=== PATIENT | male | born 1955 | race Caucasian/White ===

== ENCOUNTER 2021-09-17 13:11 | Outpatient (CLI) | payer BC ==
[2021-09-18 00:37] LABS: SARS-CoV-2 PCR by NAA Not Detected (NotDetected)
== END 2021-09-17 13:12 | disposition home or self-care (01) ==
LOC: CSHLAB 13:11
PROVIDERS: ATTEND Internal Medicine Gastroenterology
DX: Z01.812 Encounter for preprocedural laboratory examination (principal); Z20.822 Contact with and (suspected) exposure to COVID-19
CPT/HCPCS: U0003; U0005

== ENCOUNTER 2021-09-20 09:42 | Day surgery (SDC) | payer BC ==
[2021-09-16 15:52] VITALS: BMI 24.7
[2021-09-20] MEDS ORDERED: Lidocaine 1% MPF 2 ML VIAL ONE (10:07)
[2021-09-20] MEDS ORDERED: Lidocaine 1% PF 5 ML VIAL ONE (11:39)
[2021-09-20] MEDS ORDERED: PROPOFOL 40 ML ONE (11:39)
== END 2021-09-20 12:58 | disposition home or self-care (01) ==
LOC: CSHSDC 09:42
PROVIDERS: ATTEND Internal Medicine Gastroenterology
PROC: 0DBH8ZZ Excision of Cecum, Via Natural or Artificial Opening Endoscopic (ICD-10-PCS; principal; 2021-09-20)
DX: Z12.11 Encounter for screening for malignant neoplasm of colon (principal); D12.0 Benign neoplasm of cecum; K57.30 Diverticulosis of large intestine without perforation or abscess without bleeding; K64.9 Unspecified hemorrhoids; I10 Essential (primary) hypertension; E78.5 Hyperlipidemia, unspecified
CPT/HCPCS: 88305; J2704